=== PATIENT | female | born 1995 | race Caucasian/White ===

== ENCOUNTER 2021-02-05 14:53 | Emergency (ER) | payer OTHER, SELFPAY ==
[2021-02-05 14:56] VITALS: BP 125/91; PULSE 65; RESP 14; TEMP 36.7; O2SAT 99; BMI 22.0
--- NOTE | 2021-02-05 14:59 | DI.RAD.S_ITS ---
PROCEDURE: XR WRIST RT MIN 3V INDICATIONS: RIGHT wrist injury TECHNIQUE: 4 views of the wrist were acquired. COMPARISON: None. FINDINGS: Bones: There is a comminuted, mildly displaced intra-articular fracture of the distal right radius. Moderate overlying soft tissue swelling. There is also a mildly displaced fracture involving the distal ulnar styloid process. Carpal bone alignment appears intact. No suspicious bony lesions. Scaphoid view: Scaphoid appears intact. Scapholunate interval is maintained. Soft tissues: No suspicious soft tissue calcifications. IMPRESSION: Comminuted, intra-articular fracture of the distal right radius. Displaced distal ulnar styloid process fracture. Dictated by: Vickey Miller M.D. on 02/05/2021 at 14:30 Approved by: Vickey Miller M.D. on 02/05/2021 at 14:32
[2021-02-05 16:57] VITALS: BP 125/80; PULSE 87; RESP 22; O2SAT 100
--- NOTE | 2021-02-05 17:43 | ED_ITS ---
HPI - Extremity Injury (Upper) General Chief Complaint: Extremity Injury, Upper Stated Complaint: right wrist injury, thinks fractured Time Seen by Provider: 02/05/21 15:45 Source: patient Mode of arrival: Ambulatory Limitations: no limitations History of Present Illness HPI narrative: 25-year-old woman otherwise healthy had a fall on an outstretched hand and notes pain in the right wrist with slight deformity. She comes to the ER for further evaluation Related Data Allergies Allergy/AdvReac Type Severity Reaction Status Date / Time No Known Drug Allergies Allergy Verified 02/05/21 14:56 Review of Systems Review of Systems Narrative: Pertinent positive and negative findings as per HPI Remainder of review of systems is otherwise unremarkable for Constitutional: Fevers, chills, weakness CV: Chest pain, palpitations, Respiratory: Cough, wheeze, dyspnea GI: Nausea, vomiting, diarrhea, MS: Muscle weakness, numbness, joint swelling or warmth Patient History Social History Smoking Status: Current every day smoker Smoking Status: Current every day smoker alcohol intake frequency: a few times a week Substance Use Type: marijuana Exam Narrative Exam Narrative: General: Alert appropriate in no acute distress Respiratory: Able to speak in full sentences, no obvious respiratory distress Skin: No obvious rashes, warm and dry Neurologic: Grossly intact no obvious asymmetries or abnormalities Psych: appropriate insight and affect, cooperative Extremity: Right list somewhat swollen, mildly tender with slight dorsal deformity. No abrasions, contusions or hematoma. She is neurovascularly intact distal to the area of concern. There was no injury to the elbow or shoulder. Initial Vital Signs Initial Vital Signs: Vital Signs Temperature 98.0 F 02/05/21 14:56 Pulse Rate 65 02/05/21 14:56 Respiratory Rate 14 02/05/21 14:56 Blood Pressure 125/91 H 02/05/21 14:56 Pulse Oximetry 99 02/05/21 14:56 Procedures Orthopedic Splinting/Casting Right arm: Side: right Upper Extremity Immobilizer: volar splint Other Orthopedic Equipment: other (Plain) Post splinting neuro exam: intact Post splinting vascular exam: intact Placed by: Provider Course Orders Ordered: ED Orders 02/05/21 14:59 XR wrist RT min 3V Stat Vital Signs Vital signs: Vital Signs - 8 hr 02/05/21 14:56 02/05/21 16:57 Temperature 98.0 F Pulse Rate 65 87 Respiratory Rate 14 22 Blood Pressure 125/91 H 125/80 Pulse Oximetry 99 100 [facility] - Extremity Injury (Upper) Medical Records Attestation: I reviewed the patient's medical records. Imaging Data X-ray wrist: Radiologist's Impression: FINDINGS: Bones: There is a comminuted, mildly displaced intra-articular fracture of the distal right radius. Moderate overlying soft tissue swelling. There is also a mildly displaced fracture involving the distal ulnar styloid process. Carpal bone alignment appears intact. No suspicious bony lesions. Scaphoid view: Scaphoid appears intact. Scapholunate interval is maintained. Soft tissues: No suspicious soft tissue calcifications. IMPRESSION: Comminuted, intra-articular fracture of the distal right radius. Displaced distal ulnar styloid process fracture. Dictated by: Vickey Miller M.D. on 02/05/2021 at 14:30 MDM Narrative Medical decision making narrative: 25-year-old woman with fall on outstretched hand use suffered a comminuted mildly displaced intra-articular fracture of the distal right radius and a chip fracture off the distal ulna. She is splinted and instructed follow-up with Ortho. She is returning home, to [place], on Wednesday so will arrange for orthopedic follow-up in you talk. She is having minimal pain so additional pain medication is not required at this point. She is safe for home discharge Discharge Plan Departure Patient Disposition: Home Clinical Impression: Fracture of wrist Qualifiers: Encounter type: initial encounter Fracture type: closed Laterality: right Qualified Code(s): S62.101A - Fracture of unspecified carpal bone, right wrist, initial encounter for closed fracture Instructions: DI for Wrist Fracture Activity Restrictions/Additional Instructions: Thank you for coming in today You did break your wrist. The fracture does extend into the wrist joint itself and then there is a small chip off the tip of the ulna (the smaller bone). This may need surgery. You need to be seen by an orthopedic surgeon within a week or so. Please call as soon as you return home to you talk to schedule an appointment. In the meantime, keep the splint in place. Use the sling for comfort. Ice on the outside of the sling can be helpful. Using 400 mg of ibuprofen (2 [id number] pills) and 1 Tylenol every 6 hours can be very helpful in controlling pain. If you have new or worsening symptoms, please feel free to return to the emergency department I hope the rest of your week here and the all goes well
== END 2021-02-05 16:58 | disposition home or self-care (01) ==
PROVIDERS: Emergency Provider Emergency Medicine
DX: S62.101A Fracture of unspecified carpal bone, right wrist, initial encounter for closed fracture (principal); W19.XXXA Unspecified fall, initial encounter
CPT/HCPCS: 73110; 99283